=== PATIENT | female | born 1980 | race Caucasian/White ===

== ENCOUNTER → 2022-09-18 | Emergency (ER) | payer MEDICAID ==
[~2022-09-18] VITALS: Ht 162.6 cm; Wt 62.0 kg
[~2022-09-18] MED LIST: AMOX1TAB16 MT; D-ME473S50 PO; FLUT9.9S BOTHNSTRLS; NAPR500T7 PO
[2022-09-18 02:33] VITALS: BP 145/112
== END | disposition home or self-care (01) ==
LOC: ER 02:19
DX: J11.1 Influenza due to unidentified influenza virus with other respiratory manifestations (principal); G35 Multiple sclerosis; Z90.49 Acquired absence of other specified parts of digestive tract; Z98.890 Other specified postprocedural states
CPT/HCPCS: 99283

== ENCOUNTER 2022-09-26 02:25 | Emergency (ER) | payer MEDICAID ==
[~2022-09-26] VITALS: Ht 162.6 cm; Wt 62.0 kg
[~2022-09-26 02:25] MED LIST changes: -AMOX1TAB16 MT
[2022-09-26 02:41] VITALS: BP 126/98
[2022-09-26 04:59] LABS: BASOPHILS % 0.4 % (0.0-2.0); EOSINOPHILS % 2.1 % (0.0-5.0); HEMATOCRIT. 42.1 % (36.0-48.0); HEMOGLOBIN. 14.3 g/dL (12.0-16.0); LYMPHOCYTES % 29.2 % (20.0-50.0); MEAN CORPUSCULAR HEMOGLOBIN 30.6 pg (28.0-32.0); MEAN CORPUSCULAR VOLUME 90.3 fL (81.0-99.0); MONOCYTES % 10.3 % (2.0-8.0); PLATELET 351 x1000/uL (130-400); RED BLOOD CELL COUNT 4.66 mill/uL (4.2-5.4); RED CELL DISTRIBUTION WIDTH 15.8 % (11.6-14.6)
[2022-09-26 05:03] LABS: CHLORIDE 106 mEq/L (98-107)
[2022-09-26 05:28] LABS: HCG SCREEN NEGATIVE
[2022-09-26] MEDS ORDERED: AMOXICILLIN/POTASSIUM CLAVULANATE 875/125MG TAB PO NR (05:45)
[2022-09-26] MEDS ORDERED: AMOX1TAB16 MT (06:11)
== END 2022-09-26 06:32 | disposition home or self-care (01) ==
LOC: ER 02:37
DX: J32.9 Chronic sinusitis, unspecified (principal); Z98.890 Other specified postprocedural states; R05.9 Cough, unspecified
CPT/HCPCS: 36415; 71045; 80053; 84703; 85025; 99284

== ENCOUNTER 2022-10-19 11:06 | Emergency (ER) | payer MEDICAID ==
[~2022-10-19] VITALS: Ht 162.6 cm; Wt 63.0 kg
[~2022-10-19 11:06] MED LIST changes: +AMOX1TAB16 MT
[2022-10-19 11:08] VITALS: BP 142/103
[2022-10-19] MEDS ORDERED: AMOX1TAB16 MT (15:25)
[2022-10-19] MEDS ORDERED: FLUT9.9S BOTHNSTRLS (15:25)
== END 2022-10-19 15:44 | disposition home or self-care (01) ==
LOC: ER 11:06
DX: J32.9 Chronic sinusitis, unspecified (principal); Z98.890 Other specified postprocedural states; Z90.49 Acquired absence of other specified parts of digestive tract
CPT/HCPCS: 99284

== ENCOUNTER 2022-10-21 07:57 | Emergency (ER) | payer MEDICAID ==
[~2022-10-21] VITALS: Ht 162.6 cm; Wt 61.0 kg
[2022-10-21 08:02] VITALS: BP 162/111
[2022-10-21] MEDS ORDERED: ACETAMINOPHEN 325MG TABLET PO ONE (10:30)
[2022-10-21] MEDS ORDERED: BENZ100C86 MT (10:53)
[2022-10-21] MEDS ORDERED: ALBU6.7H3 INH (10:53)
== END 2022-10-21 12:02 | disposition home or self-care (01) ==
LOC: ER 07:57
DX: J06.9 Acute upper respiratory infection, unspecified (principal); R05.9 Cough, unspecified; G35 Multiple sclerosis; Z90.49 Acquired absence of other specified parts of digestive tract
CPT/HCPCS: 99283

== ENCOUNTER 2022-10-23 20:37 | Emergency (ER) | payer MEDICAID ==
[~2022-10-23] VITALS: Ht 162.6 cm; Wt 70.0 kg
[~2022-10-23 20:37] MED LIST changes: +ALBU6.7H3 INH; +BENZ100C86 MT
[2022-10-23 20:40] VITALS: BP 138/87
[2022-10-24] MEDS ORDERED: IBUP-2028 MT (01:20)
[2022-10-24 04:46] LABS: *AMPHETAMINES SCREEN URINE NEGATIVE (NEGATIVE); *BARBITURATES SCREEN URINE NEGATIVE (NEGATIVE); *BENZODIAZEPINES SCREEN URINE NEGATIVE (NEGATIVE); *COCAINE SCREEN URINE NEGATIVE (NEGATIVE); METHADONE URINE SCREEN NEGATIVE (NEGATIVE); OPIATES URINE SCREEN NEGATIVE (NEGATIVE); PHENCYCLIDINE URINE SCREEN NEGATIVE (NEGATIVE)
[2022-10-24 04:48] LABS: CANNABINOID URINE SCREEN PRESUMTIVE POSITIVE (NEGATIVE)
== END 2022-10-24 10:06 | disposition home or self-care (01) ==
LOC: ER 20:37
DX: R05.9 Cough, unspecified (principal); Z20.822 Contact with and (suspected) exposure to COVID-19; Z90.49 Acquired absence of other specified parts of digestive tract; Z98.890 Other specified postprocedural states
CPT/HCPCS: 71045; 80305; 87426; 99284; C9803; Z7610

== ENCOUNTER 2023-07-16 10:09 | Emergency (ER) | payer MEDICAID ==
[~2023-07-16] VITALS: Ht 162.6 cm; Wt 56.7 kg
[~2023-07-16 10:09] MED LIST changes: +IBUP-2028 MT
[2023-07-16 10:37] VITALS: BP 140/107; PULSE 106; RESP 16; TEMP 98.5; O2SAT 100
[2023-07-16 15:14] LABS: CLARITY URINE TURBID (CLEAR); COLOR URINE YELLOW (YELLOW); GLUCOSE URINE NEGATIVE (NEGATIVE); KETONES URINE NEGATIVE (NEGATIVE); LEUKOCYTE ESTERASE URINE 3+ (NEGATIVE); NITRITE URINE NEGATIVE (NEGATIVE); OCCULT BLOOD URINE 3+ (NEGATIVE); PH URINE 7.5 (4.5-8.0); PROTEIN URINE 1+ (NEGATIVE); SPECIFIC GRAVITY URINE 1.009 (1.005-1.030)
[2023-07-16 15:33] LABS: SQUAMOUS EPITHELIAL CELL URINE 3+ /lpf (RARE/1+)
[2023-07-16 15:34] LABS: WBC URINE 25-50 /hpf (0-2)
[2023-07-16 15:35] LABS: BACTERIA URINE 4+; RBC URINE 25-50 /hpf (0-2)
[2023-07-16 15:38] LABS: *AMPHETAMINES SCREEN URINE NEGATIVE (NEGATIVE); *BARBITURATES SCREEN URINE NEGATIVE (NEGATIVE); *BENZODIAZEPINES SCREEN URINE NEGATIVE (NEGATIVE); *COCAINE SCREEN URINE NEGATIVE (NEGATIVE); ECSTASY MDMA SCREEN URINE NEGATIVE (NEGATIVE); METHADONE URINE SCREEN NEGATIVE (NEGATIVE); OPIATES URINE SCREEN NEGATIVE (NEGATIVE); PHENCYCLIDINE URINE SCREEN NEGATIVE (NEGATIVE)
[2023-07-16] MEDS ORDERED: PHEN-815 MT (15:41)
[2023-07-16] MEDS ORDERED: CEPH500T MT (15:41)
[2023-07-16 16:11] LABS: CANNABINOID URINE SCREEN PRESUMTIVE POSITIVE (NEGATIVE)
== END 2023-07-16 16:08 | disposition home or self-care (01) ==
LOC: ER 10:33
DX: G35 Multiple sclerosis (principal)
CPT/HCPCS: 80305; 81003; 81025; 87077; 87186; 99283